=== PATIENT | male | born 2000 | race African-American/Black ===

== ENCOUNTER 2020-02-03 14:13 | Emergency (ER) | payer MEDICAID ==
[~2020-02-03] VITALS: Ht 180.3 cm; Wt 154.6 kg
[2020-02-03 16:19] LABS: BASOPHILS # (AUTO) 0.1 X10'3 (0-0.2); BASOPHILS % (AUTO) 0.9 % (0-1); EOSINOPHILS # (AUTO) 0.4 X10'3 (0-0.9); EOSINOPHILS % (AUTO) 4.7 % (0-6); HEMATOCRIT 40.5 % (42.0-52.0); HEMOGLOBIN 13.4 g/dl (14.0-17.9); LYMPHOCYTES # (AUTO) 2.6 X10'3 (1.1-4.8); LYMPHOCYTES % (AUTO) 28.1 % (21-51); MEAN CORPUSCULAR HEMOGLOBIN 27.7 PG (27.0-31.0); MEAN CORPUSCULAR VOLUME 83.7 FL (78-98); MEAN PLATELET VOLUME 8.3 FL (7.4-10.4); MONOCYTES # (AUTO) 0.8 X10'3 (0-0.9); MONOCYTES % (AUTO) 8.4 % (2-12); NEUTROPHILS # (AUTO) 5.3 X10'3 (1.8-7.7); NEUTROPHILS % (AUTO) 57.9 % (42-75); PLATELET COUNT 220 X10'3 (140-440); RED BLOOD COUNT 4.83 X10'6 (4.70-6.10); RED CELL DISTRIBUTION WIDTH 14.4 % (11.5-14.5); WHITE BLOOD COUNT 9.2 X10'3 (4.5-11.0)
[2020-02-03 16:36] LABS: ALBUMIN 3.7 G/DL (3.4-5.0); ALBUMIN/GLOBULIN RATIO 1.2 (1.1-1.5); ANION GAP 9 (8-16); ASPARTATE AMINO TRANSFERASE 19 U/L (10-37); BILIRUBIN,TOTAL 0.3 MG/DL (0.1-1.0); BLOOD UREA NITROGEN 8 MG/DL (7-18); BUN/CREATININE RATIO 7.6 (5.4-32.0); C-REACTIVE PROTEIN 0.41 MG/DL (0.0-0.5); CALCIUM 8.7 MG/DL (8.5-10.1); CHLORIDE 107 MMOL/L (99-107); CREATININE 1.05 MG/DL (0.60-1.10); GLUCOSE 85 MG/DL (70-104); POTASSIUM 3.7 MMOL/L (3.5-5.1); SODIUM 142 MMOL/L (135-145); TOTAL CARBON DIOXIDE 25.9 MMOL/L (24-32); TOTAL PROTEIN 6.8 G/DL (6.4-8.2); eGFR > 90 ML/MIN
[2020-02-03 16:37] LABS: ALANINE AMINOTRANSFERASE 17 U/L (12-78); ALKALINE PHOSPHATASE 62 IU/L (20-180)
[2020-02-03 16:39] LABS: PARTIAL THROMBOPLASTIN TIME 27 SECONDS (22-32)
[2020-02-03 17:08] LABS: CLARITY,URINE SLIGHTLY CLOUDY (Clear); COLOR,URINE YELLOW (Yellow); GLUCOSE, URINE NEGATIVE (Neg); KETONES,URINE NEGATIVE (Neg); LEUKOCYTE ESTERASE ,URINE SMALL (Neg); NITRITES, URINE NEGATIVE (Neg); OCCULT BLOOD,URINE NEGATIVE (Neg); PROTEIN,URINE NEGATIVE (Neg); UROBILINOGEN,URINE 0.2 E.U/dL (0.2-1.0)
[2020-02-03 17:11] LABS: UA COLLECTION TYPE CLN CATCH MIDSTREAM
[2020-02-03 17:14] LABS: URINE AMPHETAMINE SCREEN NEGATIVE (Neg); URINE BARBITUATE SCREEN NEGATIVE (Neg); URINE BENZODIAZEPINES SCREEN NEGATIVE (Neg); URINE CANNABINOID SCREEN POSITIVE (Neg); URINE COCAINE SCREEN NEGATIVE (Neg); URINE METHADONE SCREEN NEGATIVE (Neg); URINE OPIATE SCREEN NEGATIVE (Neg); URINE PHENCYCLIDINE SCREEN NEGATIVE (Neg)
[2020-02-03 17:16] LABS: RBC,URINE NONE SEEN /HPF (0-2); WBC,URINE 20-30 /HPF (0-4)
[2020-02-03 17:17] LABS: BACTERIA,URINE FEW /HPF (Neg); MUCUS STRANDS MODERATE /LPF (Neg); SQUAMOUS EPITHELIAL CELL,UR FEW /LPF (FEW)
[2020-02-03] MEDS ORDERED: aspirin 81mg tab.chew PO ONE (17:50)
[2020-02-03 17:54] VITALS: BP 130/82
== END 2020-02-03 17:56 | disposition home or self-care (01) ==
LOC: ER 14:14
DX: R20.0 Anesthesia of skin (principal); F41.9 Anxiety disorder, unspecified; Z86.73 Personal history of transient ischemic attack (TIA), and cerebral infarction without residual deficits
CPT/HCPCS: 36415; 80053; 80305; 81001; 85025; 85610; 85651; 85730; 86140; 87088; 99283

== ENCOUNTER 2020-08-11 20:36 | Emergency (ER) | payer MEDICAID ==
[~2020-08-11] VITALS: Ht 182.9 cm; Wt 140.0 kg
--- NOTE | 2020-08-11 20:57 | NUR ---
PATIENT HAS AN APPOINTMENT WITH [facility] ON August PATIENT IS VERY POLITE
[2020-08-11] MEDS ORDERED: NO HOME MEDS (21:38)
--- NOTE | 2020-08-11 21:41 | NUR ---
Patient reports that he called the police today to bring him to the hospital because he was having thoughts of self harm with no specific plan. Patient reports that about a week ago he tried to harm himself by ingesting rubbing alcohol. Rogers reports a remote history of SA with pills. Patient states he has not taken his psych meds for over a year due to no MD but has arranged to go to [facility] 08/28/20. Patient states he has PTSD, anxiety, depression and bipolar. Plan of care is explained to patient who verbalized understanding. Patient is concerned that his I phone needs to be charged. Belongings placed in belongins bag by [facility] and patient in [facility].
[2020-08-11 22:11] LABS: ALANINE AMINOTRANSFERASE 26 U/L (12-78); ALBUMIN 3.7 G/DL (3.4-5.0); ALBUMIN/GLOBULIN RATIO 1.1 (1.1-1.5); ALKALINE PHOSPHATASE 75 IU/L (46-116); ANION GAP 8 (8-16); ASPARTATE AMINO TRANSFERASE 19 U/L (10-37); BILIRUBIN,TOTAL 0.2 MG/DL (0.1-1.0); BLOOD UREA NITROGEN 10 MG/DL (7-18); CALCIUM 8.7 MG/DL (8.5-10.1); CHLORIDE 107 MMOL/L (99-107); GLUCOSE 112 MG/DL (70-104); POTASSIUM 3.6 MMOL/L (3.5-5.1); SODIUM 142 MMOL/L (135-145); TOTAL PROTEIN 7.1 G/DL (6.4-8.2); eGFR > 90 ML/MIN
[2020-08-11 22:19] LABS: ETHANOL < 0.010 GM/DL (0.0-0.010)
[2020-08-11 22:21] LABS: BASOPHILS # (AUTO) 0.1 X10'3 (0-0.2); BASOPHILS % (AUTO) 0.7 % (0-1); EOSINOPHILS # (AUTO) 0.3 X10'3 (0-0.9); EOSINOPHILS % (AUTO) 4.2 % (0-6); HEMATOCRIT 44.3 % (42.0-52.0); HEMOGLOBIN 14.5 g/dl (14.0-17.9); LYMPHOCYTES # (AUTO) 2.5 X10'3 (1.1-4.8); LYMPHOCYTES % (AUTO) 30.5 % (21-51); MEAN CORPUSCULAR HEMOGLOBIN 27.4 PG (27.0-31.0); MEAN CORPUSCULAR HGB CONC 32.7 g/dL (33.0-36.5); MEAN CORPUSCULAR VOLUME 83.9 FL (78-98); MEAN PLATELET VOLUME 8.7 FL (7.4-10.4); MONOCYTES # (AUTO) 0.5 X10'3 (0-0.9); MONOCYTES % (AUTO) 6.3 % (2-12); NEUTROPHILS # (AUTO) 4.9 X10'3 (1.8-7.7); NEUTROPHILS % (AUTO) 58.3 % (42-75); PLATELET COUNT 251 X10'3 (140-440); RED BLOOD COUNT 5.28 X10'6 (4.70-6.10); RED CELL DISTRIBUTION WIDTH 14.7 % (11.5-14.5); WHITE BLOOD COUNT 8.3 X10'3 (4.5-11.0)
--- NOTE | 2020-08-11 22:24 | NUR ---
Patient given portable phone by tech and attempted to call his friend; no answer and patient is tearful and upset. Martha: [phone]. RN called and left voicemail for her to call [facility].
[2020-08-11 23:21] LABS: CLARITY,URINE CLEAR (Clear); COLOR,URINE YELLOW (Yellow); GLUCOSE, URINE NEGATIVE (Neg); KETONES,URINE NEGATIVE (Neg); LEUKOCYTE ESTERASE ,URINE NEGATIVE (Neg); NITRITES, URINE NEGATIVE (Neg); OCCULT BLOOD,URINE NEGATIVE (Neg); PROTEIN,URINE NEGATIVE (Neg); UA COLLECTION TYPE CLN CATCH MIDSTREAM
[2020-08-11 23:29] LABS: URINE AMPHETAMINE SCREEN NEGATIVE (Neg); URINE BARBITUATE SCREEN NEGATIVE (Neg); URINE BENZODIAZEPINES SCREEN NEGATIVE (Neg); URINE CANNABINOID SCREEN NEGATIVE (Neg); URINE COCAINE SCREEN NEGATIVE (Neg); URINE METHADONE SCREEN NEGATIVE (Neg); URINE OPIATE SCREEN NEGATIVE (Neg); URINE PHENCYCLIDINE SCREEN NEGATIVE (Neg)
[2020-08-11] MEDS ORDERED: LORazepam 1 MG tablet PO ONE (23:55)
--- NOTE | 2020-08-12 07:00 | NUR ---
T MOVED FROM MAIN ER TO OF22. PT CURRENTLY SLEEPING IN NO S/S OF DISTRESS NOTED.
--- NOTE | 2020-08-12 08:16 | NUR ---
PACKET FAXED TO [facility]
--- NOTE | 2020-08-12 10:11 | NUR ---
PT UP TO THE BATHROOM. BREAKFAST TRAY AT BEDSIDE, PT NOT WANTING TO EAT, SITTING AT SIDE OF BED IN NO NOTED DISTRESS
--- NOTE | 2020-08-12 13:21 | NUR ---
PT WAS EVALUATED BY [facility] AND PLAN WAS FOR HIM TO RETURN HOME. PT SINCE STARTED TO BECOME WEEPY, STATING THAT HE WANTS TO GO HOME BUT HE DOESN'T WANT TO BE ALONE. PT LIVES ALONE IN HIS APARTMENT AND STATES THAT HE HAS NO FAMILY OR SUPPORT SYSTEM. [facility], [facility] WAS NOTIFIED AND SPOKE WITH PT AGAIN AND IT WAS DECIDED THAT PT WOULD STAY FOR ADDITIONAL ASSISTANCE. [facility] WAS CALLED AND PT WAS RECOMMENDED TO THEM FOR PLACEMENT.
--- NOTE | 2020-08-12 13:26 | NUR ---
Assumed care at 1325.
--- NOTE | 2020-08-12 13:38 | NUR ---
Pt is weepy then stoic then weepy. He is visibly shaking at moments. He is unable to fully verbalize his feelings but continues to mutter "I dont want to be alone. I want to go home. I don't want to be alone." Pt lives alone, moved here from [place] and has no local friends, and states he has no connection to his parents. approved once Ativan 1mg NOW.
[2020-08-12] MEDS ORDERED: LORazepam 1 MG tablet PO ONE (13:45)
--- NOTE | 2020-08-12 15:25 | NUR ---
Invited pt to join in watching a movie, as he expressed interest.
--- NOTE | 2020-08-12 16:52 | NUR ---
Attempted to procure covid sample but as soon as nare was entered pt pulled back and then pull swab out of RN's hand. He states he will not have that done again. Called [facility] to updated to situation; they are calling the supervisor solder making. He is otherwise agreeable to care.
--- NOTE | 2020-08-12 17:00 | NUR ---
[facility] in [facility] - 08/12/20 at 1801 by SADIE Pt talking on the phone. Given snack while waiting for dinner.
--- NOTE | 2020-08-12 17:30 | NUR ---
Pt gave 2nd attempt for Covd test; successful. Requested a snack prior to dinner.
--- NOTE | 2020-08-12 18:28 | NUR ---
Per the [place] office the patient was accepted at [facility] by Jessica Hillman. 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
[2020-08-12 19:22] VITALS: BP 127/85
== END 2020-08-12 19:25 ==
LOC: ER 20:37
DX: R45.851 Suicidal ideations (principal); Z20.822 Contact with and (suspected) exposure to COVID-19; F12.90 Cannabis use, unspecified, uncomplicated; F41.9 Anxiety disorder, unspecified; F31.9 Bipolar disorder, unspecified; F17.200 Nicotine dependence, unspecified, uncomplicated; Z86.73 Personal history of transient ischemic attack (TIA), and cerebral infarction without residual deficits
CPT/HCPCS: 36415; 80053; 80305; 80320; 81003; 84443; 85025; 87426; 99285

== ENCOUNTER 2020-08-15 23:16 | Emergency (ER) | payer MEDICAID ==
[~2020-08-15] VITALS: Ht 182.9 cm; Wt 113.6 kg
[~2020-08-15 23:16] MED LIST: NO HOME MEDS
--- NOTE | 2020-08-16 00:59 | NUR ---
PT TOOK OUT IV IN LOBBY, TECH PLACED BANDAGE ON PT.
[2020-08-16] MEDS ORDERED: ketorolac tromethamine 15mg/ml inj. IM ONE (01:35)
[2020-08-16] MEDS ORDERED: orphenadrine citrate 60mg/2ml inj. IM ONE (01:35)
[2020-08-16] MEDS ORDERED: LORazepam 2 mg/ml vial IM ONE (01:35)
[2020-08-16] MEDS ORDERED: ORPH100T2 PO (01:39)
[2020-08-16] MEDS ORDERED: IBUP-1984 PO (01:39)
[2020-08-16 02:29] VITALS: BP 116/71
== END 2020-08-16 02:30 | disposition home or self-care (01) ==
LOC: MERGE 23:17 → ER 23:17
DX: S39.012A Strain of muscle, fascia and tendon of lower back, initial encounter (principal); F41.9 Anxiety disorder, unspecified; Z79.899 Other long term (current) drug therapy; X58.XXXA Exposure to other specified factors, initial encounter; Y93.89 Activity, other specified; Y92.89 Other specified places as the place of occurrence of the external cause; Y99.8 Other external cause status
CPT/HCPCS: 96372; 99284; J1885; J2060; J2360

== ENCOUNTER 2020-10-26 12:47 | Emergency (ER) | payer MEDICAID ==
[~2020-10-26] VITALS: Ht 182.9 cm; Wt 149.1 kg
[~2020-10-26 12:47] MED LIST changes: +ORPH100T2 PO
[2020-10-26 13:08] VITALS: BP 135/72
--- NOTE | 2020-10-26 13:46 | NUR ---
PT SEEN AND DC'D BY PROVIDER
== END 2020-10-26 13:51 | disposition home or self-care (01) ==
LOC: ER 12:48
DX: S39.012A Strain of muscle, fascia and tendon of lower back, initial encounter (principal); R20.0 Anesthesia of skin; F41.9 Anxiety disorder, unspecified; F31.9 Bipolar disorder, unspecified; F12.90 Cannabis use, unspecified, uncomplicated; Z79.899 Other long term (current) drug therapy; X58.XXXA Exposure to other specified factors, initial encounter; Y93.89 Activity, other specified; Y92.89 Other specified places as the place of occurrence of the external cause; Y99.8 Other external cause status
CPT/HCPCS: 99281

== ENCOUNTER 2020-10-27 13:52 | Emergency (ER) | payer MEDICAID ==
[~2020-10-27] VITALS: Ht 182.9 cm; Wt 148.0 kg
[2020-10-27] MEDS ORDERED: ketorolac tromethamine 15mg/ml inj. IM ONE (14:40)
[2020-10-27] MEDS ORDERED: ketorolac trometh. 30mg/ml inj. IM ONE (14:40)
[2020-10-27 14:57] VITALS: BP 122/80
--- NOTE | 2020-10-27 14:58 | NUR ---
patient received discharge instructions and work note, acknowledged understanding. vs wnl. patient has no further needs at this time. dc home.
== END 2020-10-27 15:00 | disposition home or self-care (01) ==
LOC: ER 13:53
DX: S39.012A Strain of muscle, fascia and tendon of lower back, initial encounter (principal); F41.9 Anxiety disorder, unspecified; F31.9 Bipolar disorder, unspecified; F12.90 Cannabis use, unspecified, uncomplicated; Z79.899 Other long term (current) drug therapy; X58.XXXA Exposure to other specified factors, initial encounter; Y93.89 Activity, other specified; Y92.89 Other specified places as the place of occurrence of the external cause; Y99.8 Other external cause status
CPT/HCPCS: 96372; 99283; J1885

== ENCOUNTER 2023-08-31 01:42 | Inpatient (IN) | payer MEDICAID ==
[~2023-08-31] VITALS: Ht 177.8 cm; Wt 123.7 kg
[~2023-08-31 01:42] MED LIST changes: -ORPH100T2 PO; +ORPH100T4 PO
[2023-08-31] MEDS ORDERED: TRAZ-251 PO (09:20)
[2023-08-31] MEDS ORDERED: LITH450T2 PO (09:20)
[2023-08-31] MEDS ORDERED: ARIP10TA15 PO (09:20)
[2023-08-31 09:43] LABS: BASOPHILS # (AUTO) 0.1 X10'3 (0-0.2); BASOPHILS % (AUTO) 0.6 % (0-1); EOSINOPHILS # (AUTO) 0.3 X10'3 (0-0.9); EOSINOPHILS % (AUTO) 3.1 % (0-6); HEMATOCRIT 42.8 % (42.0-52.0); HEMOGLOBIN 13.7 g/dl (14.0-17.9); LYMPHOCYTES # (AUTO) 2.3 X10'3 (1.1-4.8); LYMPHOCYTES % (AUTO) 20.7 % (21-51); MEAN CORPUSCULAR HEMOGLOBIN 27.3 PG (27.0-31.0); MEAN CORPUSCULAR HGB CONC 32.1 g/dL (33.0-36.5); MEAN CORPUSCULAR VOLUME 85.2 FL (78-98); MEAN PLATELET VOLUME 8.5 FL (7.4-10.4); MONOCYTES % (AUTO) 9.3 % (2-12); NEUTROPHILS # (AUTO) 7.3 X10'3 (1.8-7.7); NEUTROPHILS % (AUTO) 66.3 % (42-75); PLATELET COUNT 250 X10'3 (140-440); RED BLOOD COUNT 5.02 X10'6 (4.70-6.10); RED CELL DISTRIBUTION WIDTH 14.4 % (11.5-14.5)
[2023-08-31 09:54] LABS: URINE AMPHETAMINE SCREEN NEGATIVE (Neg); URINE BARBITUATE SCREEN NEGATIVE (Neg); URINE BENZODIAZEPINES SCREEN NEGATIVE (Neg); URINE CANNABINOID SCREEN POSITIVE (Neg); URINE COCAINE SCREEN NEGATIVE (Neg); URINE METHADONE SCREEN NEGATIVE (Neg); URINE OPIATE SCREEN NEGATIVE (Neg); URINE PHENCYCLIDINE SCREEN NEGATIVE (Neg)
[2023-08-31 10:05] LABS: ANION GAP 10 (8-16); BLOOD UREA NITROGEN 13 MG/DL (7-18); BUN/CREATININE RATIO 12.1 (10.0-20.0); CALCIUM 9.2 MG/DL (8.5-10.1); CHLORIDE 107 MMOL/L (99-107); CREATININE 1.07 MG/DL (0.60-1.10); ETHANOL < 10 MG/DL (<10); GLUCOSE 81 MG/DL (70-104); POTASSIUM 3.8 MMOL/L (3.5-5.1); SODIUM 138 MMOL/L (135-145); THYROID STIMULATING HORMONE 1.27 ulU/ml (0.34-4.50); TOTAL CARBON DIOXIDE 21.3 MMOL/L (24-32); eCRCL 110 ML/MIN; eGFR > 90 ML/MIN
[2023-08-31 18:51] VITALS: BP 132/81; PULSE 63; RESP 18; TEMP 97.7; O2SAT 96
[2023-08-31 19:00] VITALS: BP 132/81; PULSE 63; RESP 18; TEMP 97.7; O2SAT 96
[2023-08-31 19:13] VITALS: RESP 18; O2SAT 96
[2023-08-31] MEDS ORDERED: magnesium hydroxide 30ml (MOM) UD suspension PO PRN (19:50)
[2023-08-31] MEDS ORDERED: mag hydrox/Alum hydrox/simeth 30ml oral suspension PO PRN (19:50)
[2023-08-31] MEDS ORDERED: loperamide 2mg capsule PO PRN (19:50)
[2023-08-31] MEDS ORDERED: traZODone 50mg tablet PO SCH (20:00)
[2023-08-31] MEDS ORDERED: lithium carbonate 450mg CR tablet PO SCH (20:00)
[2023-08-31] MEDS ORDERED: HYDR-3686 PO (20:38)
[2023-08-31] MEDS: traZODone 50mg tablet PO SCH (21:37)
[2023-09-01 07:00] VITALS: RESP 16; O2SAT 99
[2023-09-01 08:00] VITALS: BP 118/47; PULSE 64; RESP 16; TEMP 97.3; O2SAT 99
[2023-09-01] MEDS ORDERED: aripiprazole 5mg tablet PO SCH (08:00)
[2023-09-01] MEDS: acetaminophen 325mg tablet PO SCH (18:00)
[2023-09-01 19:00] VITALS: BP 133/57; PULSE 50; RESP 14; TEMP 97.9; O2SAT 99
[2023-09-01 19:05] VITALS: RESP 14; RESP 18; O2SAT 96; O2SAT 99
[2023-09-01] MEDS: lithium carbonate 450mg CR tablet PO SCH (21:57)
[2023-09-01] MEDS: aripiprazole 5mg tablet PO ONE (21:58)
[2023-09-02 07:30] VITALS: BP 116/69; PULSE 55; RESP 16; TEMP 96.9; O2SAT 98
[2023-09-02] MEDS ORDERED: aripiprazole 5mg tablet PO SCH (08:00)
[2023-09-02 08:45] VITALS: RESP 16; O2SAT 98
[2023-09-02] MEDS: acetaminophen 325mg tablet PO PRN (12:22)
[2023-09-02] MEDS: LIDOcaine 5% patch TP SCH (16:06)
[2023-09-02 19:00] VITALS: RESP 16; O2SAT 97
[2023-09-02 20:00] VITALS: BP 123/64; PULSE 60; RESP 16; TEMP 98.1; O2SAT 97
[2023-09-02] MEDS: aripiprazole 5mg tablet PO SCH (21:19)
[2023-09-02 21:41] VITALS: BP 123/64; PULSE 60; RESP 16; TEMP 98.1; O2SAT 97
[2023-09-03 07:26] VITALS: BP 133/70; PULSE 61; RESP 18; TEMP 97.2; O2SAT 100
[2023-09-03 07:55] VITALS: RESP 18
[2023-09-03 19:00] VITALS: RESP 16; O2SAT 99
[2023-09-03 20:00] VITALS: BP 135/60; PULSE 50; RESP 16; TEMP 97.8; O2SAT 99
[2023-09-03] MEDS: traZODone 50mg tablet PO ONE (21:50)
[2023-09-04 07:00] VITALS: BP 128/56; PULSE 77; RESP 16; TEMP 97.5; O2SAT 98
[2023-09-04 19:43] VITALS: BP 131/58; PULSE 48; RESP 12; TEMP 97.7; O2SAT 99
[2023-09-05 07:00] VITALS: BP 115/66; PULSE 61; RESP 16; TEMP 97.7; O2SAT 99
[2023-09-05 19:00] VITALS: RESP 16; O2SAT 99
[2023-09-05 20:00] VITALS: BP 124/78; PULSE 60; RESP 17; TEMP 98.2; O2SAT 98
[2023-09-05] MEDS: traZODone 50mg tablet PO SCH (21:32)
[2023-09-06 07:00] VITALS: BP 137/80; PULSE 53; RESP 18; TEMP 97.3; O2SAT 99
[2023-09-06 19:30] VITALS: RESP 16; O2SAT 96
[2023-09-06 20:00] VITALS: BP 125/65; PULSE 53; RESP 16; TEMP 98.4; O2SAT 96
[2023-09-06] MEDS: docusate sod 100mg capsule PO SCH (21:05)
[2023-09-07 07:00] VITALS: BP 129/66; PULSE 72; RESP 16; TEMP 97.6; O2SAT 99
[2023-09-07 19:59] VITALS: BP 126/84; PULSE 70; RESP 14; TEMP 97.9; O2SAT 94
[2023-09-08] MEDS: hydrOXYzine 10 MG tablet PO PRN (01:56)
[2023-09-08 07:00] VITALS: RESP 16; O2SAT 99
[2023-09-08 08:00] VITALS: BP 117/63; PULSE 49; RESP 16; TEMP 97.9; O2SAT 99
[2023-09-08 19:00] VITALS: RESP 16; O2SAT 99
[2023-09-08 20:00] VITALS: BP 138/69; PULSE 55; RESP 16; TEMP 97.8; O2SAT 99
[2023-09-08] MEDS ORDERED: TRAZ-256 PO (22:14)
[2023-09-08] MEDS ORDERED: ARIP5TAB31 PO (22:14)
[2023-09-08] MEDS ORDERED: lithium carbonate 450mg CR PO (22:14)
[2023-09-08] MEDS ORDERED: HYDR-3686 PO (22:14)
[2023-09-09 07:00] VITALS: BP 114/54; PULSE 67; RESP 16; TEMP 97.3; O2SAT 100
[2023-09-09 19:00] VITALS: RESP 16; O2SAT 100
[2023-09-09 20:00] VITALS: BP 115/67; PULSE 61; RESP 16; TEMP 98.3; O2SAT 99
[2023-09-09 22:25] VITALS: BP 153/74; PULSE 57; RESP 18; TEMP 97.9; O2SAT 99
[2023-09-09 22:32] LABS: BILIRUBIN,URINE NEGATIVE (Neg); CLARITY,URINE CLOUDY (Clear); COLOR,URINE STRAW (Yellow); GLUCOSE, URINE NEGATIVE (Neg); KETONES,URINE NEGATIVE (Neg); LEUKOCYTE ESTERASE ,URINE SMALL (Neg); NITRITES, URINE NEGATIVE (Neg); OCCULT BLOOD,URINE LARGE (Neg); PH,URINE 6.5 (4.8-8.0); PROTEIN,URINE NEGATIVE (Neg); UROBILINOGEN,URINE 0.2 E.U/dL (0.2-1.0)
[2023-09-09 22:38] LABS: UA COLLECTION TYPE NON-SPECIFIED
[2023-09-09 22:42] LABS: BACTERIA,URINE FEW /HPF (Neg); RBC,URINE TNTC /HPF (0-2)
[2023-09-09 22:43] LABS: SQUAMOUS EPITHELIAL CELL,UR NONE SEEN /LPF (FEW)
[2023-09-10 07:00] VITALS: BP 121/69; PULSE 49; RESP 18; TEMP 97; O2SAT 100
[2023-09-10] MEDS: acetaminophen 325mg tablet PO PRN (07:40)
[2023-09-10 08:19] LABS: BASOPHILS # (AUTO) 0.1 X10'3 (0-0.2); EOSINOPHILS # (AUTO) 0.6 X10'3 (0-0.9); EOSINOPHILS % (AUTO) 7.4 % (0-6); HEMATOCRIT 45.3 % (42.0-52.0); HEMOGLOBIN 14.7 g/dl (14.0-17.9); LYMPHOCYTES # (AUTO) 2.4 X10'3 (1.1-4.8); LYMPHOCYTES % (AUTO) 27.6 % (21-51); MEAN CORPUSCULAR HEMOGLOBIN 27.4 PG (27.0-31.0); MEAN CORPUSCULAR HGB CONC 32.5 g/dL (33.0-36.5); MEAN CORPUSCULAR VOLUME 84.3 FL (78-98); MEAN PLATELET VOLUME 7.8 FL (7.4-10.4); MONOCYTES # (AUTO) 0.7 X10'3 (0-0.9); MONOCYTES % (AUTO) 8.4 % (2-12); NEUTROPHILS # (AUTO) 4.8 X10'3 (1.8-7.7); NEUTROPHILS % (AUTO) 55.6 % (42-75); PLATELET COUNT 229 X10'3 (140-440); RED BLOOD COUNT 5.37 X10'6 (4.70-6.10); RED CELL DISTRIBUTION WIDTH 14.2 % (11.5-14.5); WHITE BLOOD COUNT 8.7 X10'3 (4.5-11.0)
== END 2023-09-10 14:00 | DRG 753 ==
LOC: ER 01:43 → ADULT MH 15:30
PROVIDERS: ADMIT Student in an Organized Health Care Education/Training Program; ATTEND Student in an Organized Health Care Education/Training Program
DX: F39 Unspecified mood [affective] disorder (principal); R45.851 Suicidal ideations; F41.9 Anxiety disorder, unspecified; G47.00 Insomnia, unspecified; M25.512 Pain in left shoulder; Z20.822 Contact with and (suspected) exposure to COVID-19; F17.210 Nicotine dependence, cigarettes, uncomplicated; F12.90 Cannabis use, unspecified, uncomplicated; Z79.899 Other long term (current) drug therapy; Z59.00 Homelessness unspecified
CPT/HCPCS: 36415; 71045; 80048; 80305; 80320; 81001; 84443; 85025; 87081; 87088; 87811; 99285

== ENCOUNTER 2023-10-27 03:28 | Emergency (ER) | payer MEDICAID ==
[~2023-10-27] VITALS: Ht 182.9 cm; Wt 122.7 kg
[~2023-10-27 03:28] MED LIST changes: +ARIP5TAB31 PO; +HYDR-3686 PO; -NO HOME MEDS; -ORPH100T4 PO; +TRAZ-256 PO; +lithium carbonate 450mg CR PO
[2023-10-27 03:40] VITALS: BP 149/90; PULSE 57; RESP 14; TEMP 98.9; O2SAT 99
[2023-10-27] MEDS ORDERED: ARIP5TAB31 PO (03:50)
[2023-10-27] MEDS ORDERED: CLIN-214 PO (03:50)
[2023-10-27] MEDS ORDERED: TRAZ-256 PO (03:50)
[2023-10-27] MEDS ORDERED: HYDR-3686 PO (03:50)
[2023-10-27] MEDS ORDERED: lithium carbonate 450mg CR PO (03:50)
[2023-10-27] MEDS ORDERED: ketorolac tromethamine 15mg/ml inj. IV ONE (04:00)
[2023-10-27] MEDS: ketorolac trometh. 30mg/ml inj. IM ONE (04:23)
== END 2023-10-27 04:26 | disposition home or self-care (01) ==
LOC: ER 03:30
DX: K04.7 Periapical abscess without sinus (principal); Z76.0 Encounter for issue of repeat prescription; F41.9 Anxiety disorder, unspecified; F32.A Depression, unspecified; F12.90 Cannabis use, unspecified, uncomplicated; Z79.2 Long term (current) use of antibiotics; Z79.899 Other long term (current) drug therapy
CPT/HCPCS: 96372; 99283; J1885

== ENCOUNTER 2024-02-24 02:56 | Emergency (ER) | payer MEDICAID ==
[~2024-02-24] VITALS: Ht 182.9 cm; Wt 128.6 kg
[~2024-02-24 02:56] MED LIST changes: -ARIP5TAB31 PO; +ARIP5TAB53 PO; +CLIN-214 PO
[2024-02-24] MEDS: acetaminophen 325mg tablet PO ONE (03:30)
[2024-02-24 03:35] VITALS: BP 130/81; PULSE 92; RESP 16; TEMP 98.6; O2SAT 97
== END 2024-02-24 03:37 | disposition home or self-care (01) ==
LOC: ER 02:57
DX: B34.9 Viral infection, unspecified (principal); Z20.822 Contact with and (suspected) exposure to COVID-19; F31.9 Bipolar disorder, unspecified; F41.9 Anxiety disorder, unspecified; F12.90 Cannabis use, unspecified, uncomplicated; Z79.899 Other long term (current) drug therapy
CPT/HCPCS: 36415; 87811; 99283